=== PATIENT | female | born 1975 | race Caucasian/White ===

== ENCOUNTER 2017-11-12 15:18 | Emergency (ER) | payer MEDICARE, SELFPAY ==
[2017-11-12 15:19] VITALS: BP 138/83; PULSE 83; RESP 16; TEMP 36.8; O2SAT 99; BMI 21.9
--- NOTE | 2017-11-12 17:15 | ED.VISSUMM ---
- ER Visit Summary Date of Service: 11/12/17 Chief Complaint: Detox History of Present Illness: The patient is a 42 F who is here requesting detox for methamphetamines. Her last use was 4 days ago. [facility] and [facility] told her to come here. She try to get a hold of [facility] but could not. She states she uses about a gram to 2 g a day. She feels a little bit anxious but has had no nausea or vomiting. Physical Examination: Vital signs reviewed. HEENT exam unremarkable. Heart is regular rate and rhythm without murmurs. Lungs are clear to auscultation. Abdomen is soft and nontender. Extremities reveal no edema. Skin exam normal. Neurologic exam normal. Test Results: None performed Emergency Department Course and Treatment: The patient has normal vital signs and a normal exam. She is resting comfortably reading a book in her bed. She does not meet any criteria for admission. She is already 4 days out from her last use. I encouraged her not to start reusing again. I will give her Bentyl and Phenergan to help with any symptoms she may have. She will follow-up with [facility] Treatment Plan: [] Disposition: Discharge Impression: Methamphetamine withdrawal This note was generated with [employer] software. It may contain incorrect words, spelling, and punctuation that were not noted in review of the chart prior to signing ED Disposition - Plan for ED Patient: Chief Complaint: Substance Abuse Referrals: Rhonda Martell MD [Primary Care Provider] -
--- NOTE | 2017-11-12 17:16 | ED.DEP ---
ED Disposition - Plan for ED Patient: Disposition: Home or Assisted Living Chief Complaint: Substance Abuse Instructions: Understanding Methamphetamine Abuse and Addiction Prescriptions: proMETHazine tablet [Phenergan] 25 mg PO Q6H PRN PRN #10 tab PRN Reason: Nausea Dicyclomine HCl [Bentyl] 20 mg PO TIDAC #20 cap Referrals: Rhonda Martell MD [Primary Care Provider] -
[2017-11-12 17:27] VITALS: BP 139/82; PULSE 73; RESP 15; O2SAT 98
== END 2017-11-12 17:29 | disposition home or self-care (01) ==
PROVIDERS: Emergency Provider Emergency Medicine; Family Provider Internal Medicine; PCP Internal Medicine
DX: F15.23 Other stimulant dependence with withdrawal (principal); F41.9 Anxiety disorder, unspecified; E03.9 Hypothyroidism, unspecified; J45.909 Unspecified asthma, uncomplicated
CPT/HCPCS: 99282

== ENCOUNTER → 2022-05-16 | Outpatient (CLI) | payer MEDICARE, MEDICAID, SELFPAY ==
--- NOTE | 2022-05-16 14:28 | BI_ITS ---
MAMMOGRAPHY - BILATERAL DIAGNOSTIC REASON FOR EXAM: Female, 47 years old. Bilateral breast lumps in the upper outer quadrants. PERTINENT HISTORY: Non-contributory. TECHNIQUE: Digital bilateral breast scooter (3D mammographic acquisition) in the CC and MLO projections. 2-D mediolateral oblique (MLO) and craniocaudad (CC) views of both breasts were obtained. CAD: Full Field Digital Mammography with Computer Added Detection was performed. COMPARISON: Comparison is made with prior examination of 02/20/2012. FINDINGS: Breast Composition: The breasts are extremely dense, which lowers the sensitivity of mammography. There are no dominant masses or suspicious calcifications. No other significant abnormalities are identified. There has been no significant change since the prior study. BI/DIAG MAMM W/CAD, BILAT IMPRESSION: Stable bilateral diagnostic mammogram. With the patient''s history of palpable lumps in both upper outer quadrants of the breast, correlation with ultrasound is recommended. ASSESSMENT CATEGORY: BIRADS Category 0: Incomplete. Need additional imaging evaluation. A letter regarding these results will be sent to the patient by the facility within 30 days. Approximately 10% of breast cancers are not detected by mammography. A normal mammogram should not delay biopsy of a clinically suspicious abnormality. Electronically Signed: Porfirio Dumas MD at 15:47 EST ,
--- NOTE | 2022-05-16 15:06 | US_ITS ---
STUDY: ULTRASOUND BREAST - RIGHT REASON FOR EXAM: Female, 47 years old. Lateral bilateral rest pain. TECHNIQUE: Axial and longitudinal images of the RIGHT breast were performed with a high resolution ultrasound transducer. # OF IMAGES: 119 COMPARISON: Comparison is made with prior mammogram done earlier today. FINDINGS: RIGHT Breast: The lateral half of the right breast was examined by ultrasound. Dense fibroglandular tissue. There is a 5 mm x 6 mm x 4 mm cyst at the 10 o''clock position of the breast. Adjacent to this, there is a 5 mm x 6 mm x 3 mm cyst. IMPRESSION: 2 small cysts are seen at the 9 o''clock and 10 o''clock position of the right breast. ASSESSMENT CATEGORY: BIRADS Category 2: Benign. A letter regarding these results will be sent to the patient by the facility within 30 days. Electronically Signed: Porfirio Dumas MD at 9:11 EST , STUDY: ULTRASOUND BREAST - LEFT REASON FOR EXAM: Female, 47 years old. Lateral breast pain. TECHNIQUE: Axial and longitudinal images of the LEFT breast were performed with a high resolution ultrasound transducer. # OF IMAGES: 119 COMPARISON: Comparison is made with prior mammogram done earlier today. FINDINGS: LEFT Breast: The lateral aspect of the left breast was examined with ultrasound. Dense fibroglandular tissue. There is a cluster of small cysts measuring 6 mm x 14 mm x 6 mm at the 2 o''clock position of the breast. US/Breast Limited Unilateral IMPRESSION: Cluster of small cysts at the 12 o''clock position of the breast at 3 cm from the nipple. ASSESSMENT CATEGORY: BIRADS Category 2: Benign. A letter regarding these results will be sent to the patient by the facility within 30 days. Electronically Signed: Porfirio Dumas MD at 9:12 EST ,
== END | disposition home or self-care (01) ==
PROVIDERS: PCP Family Medicine; Referring Provider Family Medicine; Visit Provider Family Medicine
DX: Z12.31 Encounter for screening mammogram for malignant neoplasm of breast (principal); N60.09 Solitary cyst of unspecified breast; N64.4 Mastodynia; R92.8 Other abnormal and inconclusive findings on diagnostic imaging of breast
CPT/HCPCS: 76642; 77062; 77066; G0279